=== PATIENT | female | born 1990 | race Two or more races ===

== ENCOUNTER → 2024-07-04 | Outpatient (CLI) | payer MEDICAID, SELFPAY ==
[2024-07-04 08:02] LABS: HCG,Qualitative Serum Negative
--- NOTE | 2024-07-04 08:30 | XR_ITS ---
Exam: Ultrasound-guided right thyroid biopsy. INDICATION: Hypoechoic nodule. DATE: 07/04/2024, 9:57 AM. COMPARISON: None. PROCEDURE: After a discussion of risks and benefits informed consent was obtained. Preliminary ultrasound evaluation demonstrated a heterogeneously hypoechoic nodule in the posterior aspect of the right thyroid lobe. This was targeted for fine-needle aspiration. The overlying skin was cleaned and draped in normal sterile surgical fashion. 10 cc's of 1% lidocaine was used for local anesthesia. Using ultrasound guidance a 25-gauge needles were advanced into the right thyroid nodule. Multiple fine-needle aspirates were obtained and sent to lab for analysis. The needle was withdrawn. Hemostasis was achieved. The access site was covered with sterile dressing. There are no immediate complications. IMPRESSION: Successful right thyroid fine needle aspirations as above.
[2024-07-04 08:32] LABS: Basophils # (Auto) 0.1 Thou/mm3 (0.0-0.2); Basophils % (Auto) 1 % (0-2.5); Eosinophils # (Auto) 0.1 Thou/mm3 (0.0-0.5); Eosinophils % (Auto) 1 % (0-10); Hematocrit 37.1 % (36.0-46.0); Hemoglobin 12.8 g/dL (12.0-16.0); Immature Granulocytes % (Auto) 0 % (0-0); Immature Granulocytes Auto 0.02 Thou/mm3 (0.00-0.00); Lymphocytes # (Auto) 2.3 Thou/mm3 (1.0-4.8); Lymphocytes % (Auto) 32 % (10-50); Mean Corpuscular HGB Conc 34.5 g/dl (31.0-37.0); Mean Corpuscular Volume 87 fL (80-100); Monocytes # (Auto) 0.6 Thou/mm3 (0.0-0.8); Monocytes % (Auto) 8 % (0-12); Neutrophils # (Auto) 4.1 Thou/mm3 (1.8-7.7); Neutrophils % (Auto) 58 % (37-80); Nucleated Red Blood Cell % 0 /100 WBC (0); Platelet Count 341 Thou/mm3 (140-440); RDW Standard Deviation 42.6 fL (36.4-46.3); Red Blood Count 4.27 Miln/mm3 (4.00-5.20); White Blood Count 7.2 Thou/mm3 (3.6-11.0)
[2024-07-04 09:19] LABS: Partial Thromboplastin Time 31.7 Seconds (22.0-36.0); Prothrombin Time 11.4 Seconds (9.0-12.2)
== END | disposition home or self-care (01) ==
LOC: SIRX 07-10 07:32
PROVIDERS: Radiology Diagnostic Radiology; PCP Nurse Practitioner Family; Referring Provider Nurse Practitioner Family; Visit Provider Nurse Practitioner Family
DX: E04.1 Nontoxic single thyroid nodule (principal)
CPT/HCPCS: 10005; 36415; 84703; 85025; 85610; 85730

== ENCOUNTER 2024-07-28 11:33 | Emergency (ER) | payer MEDICAID, SELFPAY ==
[2024-07-28 11:34] VITALS: BMI 22.3
[2024-07-28 11:57] VITALS: BP 143/84; PULSE 81; RESP 16; TEMP 37; O2SAT 98; BMI 22.5
--- NOTE | 2024-07-28 12:39 | EDNOTE_ITS ---
ED General RME/HPI General Chief complaint: General Adult/Misc Complain Stated complaint: R) SHOULDER PAIN DOWN TO ELBOW X 1 DAY Time Seen by Provider: 07/28/24 11:56 Source: patient Arrival date/time: 07/28/24 11:33 34-year-old female with no known medical history presents to the emergency room with a chief complaint of pain and tenderness to the patient's right shoulder Mode of arrival: ambulatory Limitations: no limitations Related Data Home Medications ?Medication ?Instructions ?Recorded ?Confirmed ferrous sulfate 325 mg (65 mg 325 mg PO BID 01/31/20 0 02/04/20 iron) tablet vit no.95-ferrous 1 tab PO QDAY 01/31/2001/07 fumarate 28 mg-folic acid 800 mcg tablet () Previous Rx's ?Medication ?Instructions ?Recorded docusate sodium 100 mg capsule 100 mg PO BID postpartu m 30 days 02/07/20 (Colace) #60 caps ibuprofen 600 mg tablet (IBU) 600 mg PO Q6H PRN fever or pain 30 02/07/20 days #30 tabs ibuprofen 600 mg tablet 600 mg PO Q8H PRN pain #10 t abs 08/20/23 Allergies Allergy/AdvReac Type Severity Reaction Status Date / Time No Known Allergies Allergy Verified 08/20/23 06:09 Review of Systems Review of Systems Systems Reviewed: All systems reviewed, normal except as documented Constitutional Constitutional: Reports system reviewed and no additional complaints, except as documented, Denies fatigue, Denies fever(s), Denies headache(s) and Denies weakness Eyes Eyes: Reports system reviewed and no additional complaints, except as documented, Denies blurry vision and Denies change in vision ENT Ears, Nose, Mouth, and Throat: Reports system reviewed and no additional complaints, except as documented, Denies otalgia, Denies headache(s), Denies nasal congestion, Denies throat swelling and Denies vertigo Cardiovascular Cardiovascular: Reports system reviewed and no additional complaints, except as documented, Denies chest pain, Denies dyspnea and Denies dyspnea on exertion Respiratory Respiratory: Reports system reviewed and no additional complaints, except as documented, Denies chest congestion, Denies cough, Denies dyspnea, Denies dyspnea on exertion and Denies wheezing Gastrointestinal Gastrointestinal: Reports system reviewed and no additional complaints, except as documented, Denies abdominal pain, Denies cramping, Denies nausea and Denies vomiting Genitourinary Genitourinary: Reports system reviewed and no additional complaints, except as documented Musculoskeletal Musculoskeletal: Reports system reviewed and no additional complaints, except as documented, Reports arthralgias, Denies back pain, Reports joint swelling and Reports limited range of motion Integumentary/Breasts Skin/Breast: Reports system reviewed and no additional complaints, except as documented and Denies wounds Neurologic Neurologic: Reports system reviewed and no additional complaints, except as documented, Denies confusion, Denies headache(s), Denies lack of coordination, Denies vertigo and Denies weakness Psychiatric Psychiatric: Reports system reviewed and no additional complaints, except as documented, Denies anxiety, Denies confusion, Denies depression, Denies paranoia, Denies suicidal ideation and Denies tactile hallucinations Endocrine Endocrine: Reports system reviewed and no additional complaints, except as documented and Denies fatigue Hematologic/Lymphatic Hematologic/Lymphatic: Reports system reviewed and no additional complaints, except as documented and Denies lymphadenopathy Allergic/Immunologic Allergic/Immunologic: Reports system reviewed and no additional complaints, except as documented, Denies throat swelling, Denies urticaria and Denies wheezing Past Medical History Past Medical History NEUROLOGIC: Negative Neurological Disorders or Seizures CARDIAC: Negative Cardiac Disorders or Congestive Heart Failure RESPIRATORY: Negative Chronic Obstructive Pulmonary Disease (COPD) GASTROINTESTINAL: Negative Gastrointestinal Disorders, Hepatitis or Colorectal Cancer GENITOURINARY: Negative Genitourinary Disorders, Renal Disease or Prostate Cancer REPRODUCTIVE: Negative Breast Cancer or Testicular Cancer MUSCULOSKELETAL: Negative Musculoskeletal Disorders or Bone Cancer ENDOCRINE: Negative Endocrine Disorders (nodules in thyroid,), Diabetes Mellitus Type 1 or Diabetes Mellitus Type 2 HEMATOLOGIC: Positive Blood Disorders and Anemia OTHER HISTORY: Positive Chicken Pox (as a child); Negative Hospitalization, Autoimmune Disease, Down Syndrome, Developmental Delay, Shingles, Falls, Blood Transfusions, Blood Transfusion Reaction, Anesthesia Reactions, Organ Transplant, Chemotherapy, Radiation Therapy, Hyperbaric Therapy, MRSA, VRSA, Vancomycin-Resistant Enterococci, Human Immunode ficiency Virus (HIV), Measles, Mumps, Rubella (Slovenian Measles), Pertussis, Clostridium Difficile, Cancer, Breast Cancer, Cervical Cancer, Colorectal Cancer, Lung Cancer, Ovarian Cancer, Prostate Cancer or Testicular Cancer Family History FAMILY HISTORY: Positive Family Respiratory Disorders (mother-asthma,) and Family Cancer (thyroid cancer, grandfather grandmother); Negative Family Psychiatric Problems, Family Cardiac Disorders, Family Gastrointestinal Problems, Family Surgery or Family Anesthesia Reaction Surgical History SURGICAL: Negative Section or Organ Transplant Social History SMOKING STATUS: Former smoker ED Exam General Limitations: Present no limitations General appearance: Present alert and in no apparent distress Head Head exam: Present atraumatic Eye Eye exam: Present normal appearance, PERRL and EOMI ENT ENT exam: Present normal exam, normal oropharynx and mucous membranes moist Neck Neck exam: Present normal inspection, full ROM and trachea midline Chest Chest inspection: Present normal inspection and symmetric chest wall rise Respiratory Respiratory exam: Present normal lung sounds bilaterally Cardiovascular Cardiovascular exam: Present regular rate, normal rhythm and normal heart sounds Abdominal Exam Abdominal exam: Present soft and normal bowel sounds Extremities Exam Extremities exam: Present normal inspection and full ROM Expanded Upper Extremity Exam Shoulder exam: Present tenderness and tenderness over AC joint; Absent full ROM, swelling, deformity or erythema Back Exam Back exam: Present normal inspection and full ROM Neurological Exam Neurological exam: Present alert, oriented X3 and CN II-XII intact Psychiatric Psychiatric exam: Present normal affect and normal mood Skin Skin exam: Present warm, dry, intact and normal color Course Quality Measures none Orders Category Date Time Status Ketorolac Inj [Toradol Inj] Med 07/28/24 12:04 Discontinued 30 mg IM X1 ONE Vital Signs Vital signs: Vital Signs Temperature 98.6 F 07/28/24 11:57 Pulse Rate 81 07/28/24 11:57 Respiratory Rate 16 07/28/24 11:57 Blood Pressure 143/84 H 07/28/24 11:57 Pulse Oximetry (%) 98 07/28/24 11:57 Oxygen Delivery Method Room Air 07/28/24 11:57 O2 saturation 98% within normal limits MDM Patient data External records reviewed:: [facility] previous records Clinical information provided by:: patient Social determinants that could affect healthcare access:: none Patient has the following chronic illnesses:: No chronic illness How is presenting disease/condition affected by chronic disease/condition?: no chronic disease Evaluation data The following diagnostics were reviewed and interpreted by me:: lab results and radiology exam(s) Lab and/or radiology exams considered but not ordered:: Labs and radiology exams considered and ordered Interpretation Summary: N/A Medications Medications considered but not ordered:: Medication given Medication administrations:: Medication Administration History Discontinued Medications Ketorolac Tromethamine (Ketorolac Inj 60 Mg/2 Ml Vial) 30 mg IM X1 ONE Stop: 07/28/24 12:05 Last Admin: 07/28/24 12:46 Dose: 30 mg Documented By: DB Medication given Consultations Consultation(s) initiated? (list below): No Diagnosis Differential Diagnosis ED Complaint MDM: Shoulder pain/shoulder f racture/shoulder dislocation Most likely diagnosis given after review of the tests above:: Shoulder sprain Admission Indicated Admission indicated?: not indicated Explain why admission is indicated or not indicated:: N/A Admission Request Was there a request for admission?: No Disposition Plan Disposition Plan: Discharge Discharge Attestation Discharge Attestation: The patient and all family members were given an opportunity to ask questions and understood the discharge instructions. Discharge instructions specifically effects, indications for sooner follow up or return to the emergency department, and the expected course of current diagnosis. Patient condition: Stable Medical Decision Making MDM Narrative MDM Narrative: 34-year-old female with no known medical history presents to the emergency room with a chief complaint of pain and tenderness to the patient's right shoulder Patient is hemodynamically stable and in no apparent distress. The patient is not tachypneic not tachycardic and afebrile Physical examination shows point tenderness to the right shoulder with palpation. The patient has a limited range of motion she is not able to lift her arms above her head and has very limited range of motion. Patient states that she recently found out she has thyroid cancer. Patient is refusing to have an x-ray of the right shoulder until she talks to her oncologist. Patient denies any trauma any falls or any injury to the shoulder. Patient denies any pulling or tugging. Patient was discharged and educated to follow-up with primary care provider in the next 24 to 48 hours and return to the emergency room for any evidence of worsening signs or symptoms Differential Diagnosis Differential Diagnosis: Shoulder pain/shoulder fracture/shoulder dislocation Discharge Plan Plan Patient Disposition: HOME (Self Care) Disposition Comment: Stable Prescriptions/Referrals Prescriptions/Med Rec: No Action PNV cmb#95-ferrous fumarate-FA [] 28 mg iron- 800 mcg Tablet 1 tab PO QDAY ferrous sulfate 325 mg (65 mg iron) Tablet 325 mg PO BID ibuprofen [IBU] 600 mg tablet 600 mg PO Q6H MDD 4 PRN (Reason: fever or pain) 30 Days Qty: 30 1RF docusate sodium [Colace] 100 mg capsule 100 mg PO BID MDD 2 30 Days Qty: 60 1RF ibuprofen 600 mg tablet 600 mg PO Q8H PRN (Reason: pain) Qty: 10 0RF Referrals: No Primary/Family,Physician [Primary Care Provider] - In 1 week Problem List Clinical Impression: Sprain of right shoulder Patient/Caregiver Discharge Instructions Education Materials: ED Shoulder Sprain Additional Instructions: Por favor, consulte con ahn m?dico de cabecera en las pr?ximas 24 a 48 horas. Si observa cualquier signo de empeoramiento de los signos o s?ntomas, acuda a urgencias de inmediato. Print Language: Slovenian Stand Alone Forms: Michaela Award Info., Patient Portal Info Letter PA/FORENSIC TECHNICIAN Supervising Physician PA/AMARILIS Supervising Physician: Dr. Sevilla
[2024-07-28] MEDS: KETOROLAC INJ 60 MG/2 ML VIAL 30 MG IM (12:46)
== END 2024-07-28 13:34 | disposition home or self-care (01) ==
PROVIDERS: Emergency Provider Emergency Medicine
DX: S43.401A Unspecified sprain of right shoulder joint, initial encounter (principal); X58.XXXA Exposure to other specified factors, initial encounter
CPT/HCPCS: 96372; 99283; J1885

== ENCOUNTER 2024-07-28 20:47 | Emergency (ER) | payer MEDICAID, SELFPAY ==
[2024-07-28 21:15] VITALS: BP 127/87; PULSE 88; RESP 16; TEMP 37.1; O2SAT 98; BMI 21.8
--- NOTE | 2024-07-28 21:36 | XR_ITS ---
Examination: Shoulder,right, 3 views Technique: Shoulder AP internal rotation, AP external rotation, Y view shoulder, 3 views Exam date and time :July 28, [id number] hours INDICATIONS: Right shoulder tenderness today. FINDINGS: 3 mm AC joint offset Significant calcific tendinitis right shoulder No shoulder fracture or dislocation IMPRESSION: Age-indeterminate minimal AC joint separation Prominent calcific tendinitis
[2024-07-28] MEDS: ACETAMINOPHEN 325 MG TABLET 650 MG PO (21:43)
--- NOTE | 2024-07-28 21:47 | PD.EDEXREM ---
ED Extremity Problem RME/HPI General Chief complaint: Extremity Problem,Nontraumatic Stated complaint: RIGHT SHOULDER PAIN Time Seen by Provider: 07/28/24 20:51 Arrival date/time: 07/28/24 20:47 Limitations: no limitations RME / HPI RME / HPI Narrative: 34-year-old female with past medical history of thyroid cancer presents for evaluation of right shoulder pain x 12 hours. She reports waking up this morning with focal pain to her right shoulder. Denies trauma. Denies chest pain, shortness of breath, fever, weight loss, night sweats, numbness, tingling, weakness, rash. She denies swelling, recent travel, history of blood clots. MD Complaint: extremity pain Onset (ago): hour(s) Consistency: constant Location: right and upper extremity Quality: aching Radiation: none Relieving factors: nothing Exacerbating factors: range of motion Associated symptoms: denies other symptoms Related Data Home Medications ?Medication ?Instructions ?Recorded ?Confirmed ferrous sulfate 325 mg (65 mg 325 mg PO BID 01/31/20 02/04/20 iron) tablet vit no.95-ferrous 1 tab PO QDAY 01/31/20 02/04/20 fumarate 28 mg-folic acid 800 mcg tablet () Previous Rx's ?Medication ?Instructions ?Recorded docusate sodium 100 mg capsule 100 mg PO BID 30 days 02/07/20 (Colace) #60 caps ibuprofen 600 mg tablet (IBU) 600 mg PO Q6H PRN fever or pain 30 02/07/20 days #30 tabs ibuprofen 600 mg tablet 600 mg PO Q8H PRN pain #10 tabs 08/20/23 cyclobenzaprine 5 mg tablet 5 mg PO TID PRN muscle spasm #20 07/28/24 tabs Allergies Allergy/AdvReac Type Severity Reaction Status Date / Time No Known Allergies Allergy Verified 07/28/24 20:51 Review of Systems Constitutional Constitutional: Denies excessive sweating, Denies fever(s), Denies headache(s), Denies night sweats and Denies weakness ENT Ears, Nose, Mouth, and Throat: Denies headache(s), Denies neck pain and Denies vertigo Cardiovascular Cardiovascular: Denies chest pain, Denies edema, Denies irregular heart rhythm, Denies leg edema, Denies palpitations and Denies radiating jaw, neck or arm pain Respiratory Respiratory: Denies cough and Denies hemoptysis Gastrointestinal Gastrointestinal: Denies nausea and Denies vomiting Musculoskeletal Musculoskeletal: Reports arthralgias (Right shoulder.), Denies back pain, Denies joint swelling, Denies muscle cramps, Denies myalgias, Denies neck pain, Denies numbness, Denies stiffness and Denies tingling Integumentary/Breasts Skin/Breast: Denies lesions and Denies rash Neurologic Neurologic: Denies headache(s), Denies numbness, Denies tingling, Denies vertigo and Denies weakness Endocrine Endocrine: Denies excessive sweating and Denies palpitations Past Medical History Past Medical History NEUROLOGIC: Negative Neurological Disorders or Seizures CARDIAC: Negative Cardiac Disorders or Congestive Heart Failure RESPIRATORY: Negative Chronic Obstructive Pulmonary Disease (COPD) GASTROINTESTINAL: Negative Gastrointestinal Disorders, Hepatitis or Colorectal Cancer GENITOURINARY: Negative Genitourinary Disorders, Renal Disease or Prostate Cancer REPRODUCTIVE: Negative Breast Cancer or Testicular Cancer MUSCULOSKELETAL: Negative Musculoskeletal Disorders or Bone Cancer ENDOCRINE: Negative Endocrine Disorders (nodules in thyroid,), Diabetes Mellitus Type 1 or Diabetes Mellitus Type 2 HEMATOLOGIC: Positive Blood Disorders and Anemia OTHER HISTORY: Positive Chicken Pox (as a child); Negative Hospitalization, Autoimmune Disease, Down Syndrome, Developmental Delay, Shingles, Falls, Blood Transfusions, Blood Transfusion Reaction, Anesthesia Reactions, Organ Transplant, Chemotherapy, Radiation Therapy, Hyperbaric Therapy, MRSA, VRSA, Vancomycin-Resistant Enterococci, Human Immunodeficiency Virus (HIV), Measles, Mumps, Rubella ([place] Measles), Pertussis, Clostridium Difficile, Cancer, Breast Cancer, Cervical Cancer, Colorectal Cancer, Lung Cancer, Ovarian Cancer, Prostate Cancer or Testicular Cancer Family History FAMILY HISTORY: Positive Family Respiratory Disorders (mother-asthma,) and Family Cancer (thyroid cancer, grandfather grandmother); Negative Family Psychiatric Problems, Family Cardiac Disorders, Family Gastrointestinal Problems, Family Surgery or Family Anesthesia Reaction Surgical History SURGICAL: Negative Section or Organ Transplant Social History SMOKING STATUS: Never smoker ED Exam General Limitations: Present no limitations General appearance: Present alert and in no apparent distress Head Head exam: Present atraumatic and normocephalic Eye Eye exam: Present normal appearance, PERRL and EOMI; Absent scleral icterus ENT ENT exam: Present normal exam, normal oropharynx and mucous membranes moist Neck Neck exam: Present normal inspection and full ROM Expanded Neck Exam Neck exam focused ED: Absent midline tenderness or paraspinal tenderness Chest Chest inspection: Present normal inspection and symmetric chest wall rise Respiratory Respiratory exam: Present normal lung sounds bilaterally; Absent respiratory distress Cardiovascular Cardiovascular exam: Present regular rate and +S1 Abdominal Exam Abdominal exam: Present soft; Absent distention Expanded Upper Extremity Exam Shoulder exam: Present tenderness (focal tenderness mid right deltoid with no fluctance or induration. no overlying skin changes. no ecchymosis. no warmth. ) Arm exam: Present normal inspection and full ROM Elbow exam: Present normal inspection and full ROM Forearm/Wrist exam: Present normal inspection and full ROM Hand exam: Present normal inspection and full ROM Neurosensory exam: Normal radial nerve Vascular exam: Normal capillary refill and radial pulse Back Exam Back exam: Present normal inspection and full ROM; Absent tenderness Neurological Exam Neurological exam: Present alert and normal gait Psychiatric Psychiatric exam: Present normal affect Skin Skin exam: Present warm, dry, intact and normal color Course Quality Measures none Orders Category Date Time Status XR shoulder RT min 2V Stat Exams 07/28/24 21:36 Completed CBC Stat Lab 07/28/24 22:04 Completed CRP [C-Reactive Protein] Stat Lab 07/28/24 22:04 Completed ESR [Sed Rate (ESR)] Stat Lab 07/28/24 22:04 Completed Acetaminophen Tab [Tylenol Tab] Med 07/28/24 21:36 Discontinued 650 mg PO X1 ONE CYCLObenzaPRINE [Flexeril] Med 07/28/24 23:24 Discontinued 5 mg PO X1 ONE Vital Signs Vital signs: Vital Signs Temperature 98.7 F 07/28/24 21:15 Pulse Rate 88 07/28/24 21:15 Respiratory Rate 16 07/28/24 21:15 Blood Pressure 127/87 H 07/28/24 21:15 Pulse Oximetry (%) 98 07/28/24 21:15 Oxygen Delivery Method Room Air 07/28/24 21:15 Pulse ox 98% on room air, within normal limits. Extremity Problem MDM Narrative MDM Narrative:: Very pleasant 34-year-old female presented for evaluation of right shoulder pain. Patient denied trauma but notes a history of known thyroid cancer for which she is currently pending a biopsy. Vital signs reassuring. Focal tenderness right deltoid without sign of abscess or trauma. PERC score 0 therefore D-dimer and CT angio was not obtained today. I did order inflammatory markers which point away from current osteomyelitis. No lytic lesions seen on x-ray today. No fracture or dislocation. Patient's symptoms were improved in the department following analgesics and antispasmodics. Ultimately the patient was discharged with plan to follow-up with primary care for further evaluation and treatment. Return precautions were provided. Patient was given a prescription for cyclobenzaprine and advised to continue to take Tylenol and ibuprofen as needed for right shoulder pain. Patient stable at time of discharge. Patient data External records reviewed:: [facility] previous records Clinical information provided by:: patient Social determinants that could affect healthcare access:: none Patient has the following chronic illnesses:: Thyroid cancer. How is presenting disease/condition affected by chronic disease/condition?: uneffected by Evaluation data The following diagnostics were reviewed and interpreted by me:: lab results and radiology exam(s) Lab and/or radiology exams considered but not ordered:: Considered not ordered. Interpretation Summary: Sed rate slightly elevated. CRP within normal range. No fracture of right humerus or dislocation of right shoulder. No osteolytic lesions on x-ray today. Medications / Prescriptions Medications or Prescriptions considered but not ordered:: Rx given. Medication administrations:: Medication Administration History Discontinued Medications Acetaminophen (Acetaminophen 325 Mg Tablet) 650 mg PO X1 ONE Stop: 07/28/24 21:37 Last Admin: 07/28/24 21:43 Dose: 650 mg Documented By: AC Cyclobenzaprine HCl (Cyclobenzaprine 5 Mg Tablet) 5 mg PO X1 ONE Stop: 07/28/24 23:25 Last Admin: 07/29/24 00:16 Dose: 5 mg Documented By: CVL Rx given. Consultations Consultation(s) initiated? (list below): No Diagnosis Extremity Problem Differential Diagnosis: cellulitis, superficial thrombophlebitis, deep venous thrombosis of upper extremity and other (Dislocation, osteomyelitis, metastatic lesions, soft tissue inflammation, right shoulder pain.) Most likely diagnosis given after review of the tests above:: Right shoulder pain, elevated sed rate. Admission Indicated Admission indicated?: not indicated Admission Request Was there a request for admission?: No Disposition Plan Disposition Plan: Discharge Discharge Attestation Discharge Attestation: The patient and all family members were given an opportunity to ask questions and understood the discharge instructions. Discharge instructions specifically effects, indications for sooner follow up or return to the emergency department, and the expected course of current diagnosis. Patient condition: Stable Discharge Plan Plan Patient Disposition: HOME (Self Care) Disposition Comment: stable Prescriptions/Referrals Prescriptions/Med Rec: New cyclobenzaprine 5 mg tablet 5 mg PO TID PRN (Reason: muscle spasm) Qty: 20 0RF No Action PNV cmb#95-ferrous fumarate-FA [] 28 mg iron- 800 mcg Tablet 1 tab PO QDAY ferrous sulfate 325 mg (65 mg iron) Tablet 325 mg PO BID ibuprofen [IBU] 600 mg tablet 600 mg PO Q6H MDD 4 PRN (Reason: fever or pain) 30 Days Qty: 30 1RF docusate sodium [Colace] 100 mg capsule 100 mg PO BID MDD 2 30 Days Qty: 60 1RF ibuprofen 600 mg tablet 600 mg PO Q8H PRN (Reason: pain) Qty: 10 0RF Referrals: No Primary/Family,Physician [Primary Care Provider] - In 1 week Problem List Clinical Impression: Acute pain of right shoulder, Elevated sed rate Patient/Caregiver Discharge Instructions Other Activity Instructions:: Take muscle relaxer as needed for right shoulder pain. Follow-up with primary care as planned for thyroid cancer. Continue to use sling until seen by primary care. Follow-up with Ortho outpatient if your symptoms do not improve within the next week. Return to the ED if your symptoms worsen or change. Dr. Pedersen [address] [facility] [address] [address] Education Materials: ED Arthralgia Print Language: Belarusian Stand Alone Forms: Michaela Award Info., Patient Portal Info Letter PA/UNEMPLOYMENT EXAMINER Supervising Physician PA/UNEMPLOYMENT EXAMINER Supervising Physician: Dr. Hensley
[2024-07-28 22:27] LABS: Basophils # (Auto) 0.1 Thou/mm3 (0.0-0.2); Basophils % (Auto) 0 % (0-2.5); Eosinophils % (Auto) 0 % (0-10); Hematocrit 36.4 % (36.0-46.0); Hemoglobin 12.7 g/dL (12.0-16.0); Immature Granulocytes % (Auto) 0 % (0-0); Immature Granulocytes Auto 0.03 Thou/mm3 (0.00-0.00); Lymphocytes # (Auto) 2.1 Thou/mm3 (1.0-4.8); Lymphocytes % (Auto) 18 % (10-50); Mean Corpuscular HGB Conc 34.9 g/dl (31.0-37.0); Mean Corpuscular Hemoglobin 30.2 pg (25.0-35.0); Mean Corpuscular Volume 87 fL (80-100); Monocytes # (Auto) 0.9 Thou/mm3 (0.0-0.8); Monocytes % (Auto) 7 % (0-12); Neutrophils # (Auto) 8.7 Thou/mm3 (1.8-7.7); Neutrophils % (Auto) 74 % (37-80); Nucleated Red Blood Cell % 0 /100 WBC (0); Platelet Count 331 Thou/mm3 (140-440); RDW Standard Deviation 41.7 fL (36.4-46.3); Red Blood Count 4.21 Miln/mm3 (4.00-5.20); White Blood Count 11.7 Thou/mm3 (3.6-11.0)
[2024-07-28 22:46] LABS: C-Reactive Protein 0.6 mg/dL (0.0-0.9)
[2024-07-28 22:47] LABS: Sed Rate (ESR) 28 mm/hr (0-20)
[2024-07-29] MEDS: CYCLObenzaPRINE 5 MG TABLET PO (00:16)
[2024-07-29 00:25] VITALS: RESP 18
== END 2024-07-29 00:25 | disposition home or self-care (01) ==
PROVIDERS: Physician Assistant; Emergency Provider Emergency Medicine
DX: M25.511 Pain in right shoulder (principal)
CPT/HCPCS: 36415; 73030; 85025; 85652; 86140; 99283; A9270

== ENCOUNTER → 2024-08-27 | Outpatient (CLI) | payer MEDICAID, SELFPAY ==
[2024-08-26 16:07] LABS: HCG Qualitative,Urine Negative
--- NOTE | 2024-08-27 11:30 | XR_ITS ---
Examination: CT soft tissue neck, without intravenous contrast. CT soft tissue neck with intravenous contrast 2-D coronal reconstructions. 2-D sagittal reconstructions. Date and time of exam :05/29/2024 1154 hours INDICATIONS: Diagnosis thyroid cancer July 10, 2024 diagnosis nontoxic single thyroid nodule. CTDI: vol (mGy):21.8 DLP: (mGycm):617 Technique: 1.25 mm axial sections of the neck of the obtained. Pre and post intravenous administration 50 cc [id number] Coronal and sagittal reconstructions have been obtained. Low dose protocols were performed. One or more of the following dose reduction techniques were used; automated exposure control, adjustment of the mA and/or KV according to patient size, use of iterative reconstruction technique. Findings: Symmetrical nasopharynx oropharynx The larynx appears normal Multiple bilateral carotid triangle lymph nodes, the largest 12 mm on the right side Minimal thyromegaly No definite thyroid nodules Lung apices clear Normal epiglottis IMPRESSION: Carotid triangle cervical lymphadenopathy, recommend ultrasound soft tissue neck 3 month follow-up Minimal thyromegaly No definite thyroid nodules, however consider dedicated thyroid sonography follow-up
== END | disposition home or self-care (01) ==
PROVIDERS: Referring Provider Internal Medicine Endocrinology, Diabetes & Metabolism; Visit Provider Internal Medicine Endocrinology, Diabetes & Metabolism
DX: R59.0 Localized enlarged lymph nodes (principal); E01.0 Iodine-deficiency related diffuse (endemic) goiter; Z32.00 Encounter for pregnancy test, result unknown
CPT/HCPCS: 70492; 81025; A4649; Q9967

== ENCOUNTER → 2025-01-13 | Outpatient (CLI) | payer MEDICAID, SELFPAY ==
--- NOTE | 2025-01-13 10:40 | XR_ITS ---
EXAMINATION: PA lateral chest 2 views TECHNIQUE: Upright PA lateral chest 2 views Date and time: January 13, 2025 1049 hours INDICATIONS: Acute coughing beginning one month ago. FINDINGS: Normal heart size. Lungs are clear. Osseous structures are intact IMPRESSION: No active disease.
== END | disposition home or self-care (01) ==
PROVIDERS: PCP Nurse Practitioner Primary Care; Referring Provider Nurse Practitioner Primary Care; Visit Provider Nurse Practitioner Primary Care
DX: R05.1 Acute cough (principal); Z86.16 Personal history of COVID-19
CPT/HCPCS: 71046

== ENCOUNTER → 2025-03-25 | Outpatient (CLI) | payer MEDICAID, SELFPAY ==
--- NOTE | 2025-03-25 09:30 | XR_ITS ---
Examination: Abdomen sonogram, Limited Date and time of exam: March 25, 2025, 0946 hours INDICATIONS: Palpable lump lateral to the navel region noticed beginning 1 year ago, history tummy tuck surgery Technique: Real-time lowe scale transabdominal sonographic images of the upper abdomen obtained. Findings: No cystic or solid mass at the area of concern IMPRESSION: No cystic or solid mass at the area of concern
== END | disposition home or self-care (01) ==
LOC: CDIM 09:28
PROVIDERS: Referring Provider Nurse Practitioner Primary Care; Visit Provider Nurse Practitioner Primary Care
DX: R22.9 Localized swelling, mass and lump, unspecified (principal)
CPT/HCPCS: 76705